=== PATIENT | female | born 1965 | race Two or more races ===

== ENCOUNTER 2016-11-20 18:45 | Emergency (ER) | payer SELFPAY ==
[~2016-11-20] VITALS: Ht 157.5 cm; Wt 61.2 kg
[~2016-11-20 18:45] MED LIST: HYDROCHLOROTHIA25 MG PO
[2016-11-20 19:58] LABS: URINE SOURCE CLEAN CATCH
[2016-11-20 20:03] LABS: URINE APPEARANCE CLEAR; URINE BILIRUBIN NEG (NEG); URINE BLOOD NEG (NEG); URINE COLOR YELLOW; URINE GLUCOSE NEG (NEG); URINE KETONE NEG (NEG); URINE LEUKOCYTE ESTERASE NEG (NEG); URINE NITRATE NEG (NEG); URINE PROTEIN NEG (NEG); URINE UROBILINOGEN 0.2 MG/DL (NEG)
[2016-11-20 20:15] LABS: CULTURE INDICATED? NO
== END 2016-11-20 21:05 | disposition home or self-care (01) ==
LOC: CED 18:45 → CFTX 18:45
PROVIDERS: Nurse Practitioner
DX: N75.0 Cyst of Bartholin's gland (principal); I10 Essential (primary) hypertension
CPT/HCPCS: 81003; 99283